=== PATIENT | female | born 1940 | race Caucasian/White ===

== ENCOUNTER → 2017-09-14 | Outpatient (CLI) | payer MEDICARE ==
[2017-09-14 08:02] LABS: Basophils % (A) 1 %; Eosinophils # (A) 0.2 k/uL (0-0.7); Eosinophils % (A) 4 %; HCT 45.6 % (34.0-46.0); HGB 14.5 gm/dL (11.4-16.0); Lymphocytes # (A) 3.4 k/uL (1.0-4.8); Lymphocytes % (A) 49 %; MCH 30.1 pg (25.0-35.0); MCHC 31.8 g/dL (31.0-37.0); MCV 94.7 fL (80.0-100.0); Mean Platelet Volume 7.8; Monocytes # (A) 0.3 k/uL (0-1.0); Monocytes % (A) 4 %; Neutrophils # (A) 2.8 k/uL (1.3-7.7); Neutrophils % (A) 41 %; Platelet Count 179 k/uL (150-450); RBC 4.82 m/uL (3.80-5.40); RDW 12.9 % (11.5-15.5); WBC 6.9 k/uL (3.8-10.6)
[2017-09-14 08:21] LABS: ALT 43 U/L (9-52); AST 42 U/L (14-36); Albumin 4.1 g/dL (3.5-5.0); Alkaline Phosphatase 70 U/L (38-126); Anion Gap 9 mmol/L; Blood Urea Nitrogen 20 mg/dL (7-17); Calcium 9.8 mg/dL (8.4-10.2); Carbon Dioxide 32 mmol/L (22-30); Chloride 103 mmol/L (98-107); Cholesterol 161 mg/dL (<200); Glucose 84 mg/dL (74-99); HDL Cholesterol 83 mg/dL (40-60); LDL Cholesterol,Calculated 65 mg/dL (0-99); Potassium 4.4 mmol/L (3.5-5.1); Sodium 144 mmol/L (137-145); Total Bilirubin 0.8 mg/dL (0.2-1.3); Total Protein 6.9 g/dL (6.3-8.2); Triglycerides 63 mg/dL (<150)
[2017-09-14 11:20] LABS: Erythrocyte Sedimentation Rate 3 mm/hr (0-20)
== END ==
LOC: LABWHC1 06:54
PROVIDERS: ATTEND Family Medicine
DX: E78.5 Hyperlipidemia, unspecified (principal); K21.9 Gastro-esophageal reflux disease without esophagitis; R05 Cough
CPT/HCPCS: 36415; 80053; 80061; 82607; 84443; 85025; 85652

== ENCOUNTER → 2018-08-18 | Outpatient (CLI) | payer MEDICARE ==
--- NOTE | 2018-08-18 12:29 | MR ---
EXAMINATION TYPE: MR shoulder LT wo con DATE OF EXAM: 08/18/2018 COMPARISON: Left HISTORY: Left shoulder instability and pain after fall TECHNIQUE: Multiplanar, multisequence imaging of the left shoulder is performed without contrast. FINDINGS: Rotator Cuff: There is an elongated articular surface tear of the myotendinous junction of the supraspinatus measur ing 1.2 x 1.3 cm at the undersurface of the supraspinatus fibers. There is additionally severe tendin opathy of the distal and insertional fibers and an 8 x 8 mm intrasubstance tear. There is also a 5 x 6 mm insertional fiber tear at the footplate. Fluid is seen at the undersurface of the infraspinatus elongated measuring approximately 1.5 cm. Ther e is an articular surface tear measuring 1.0 x 0.6 cm. Moderate infraspinatus tendinopathy is also se en. Teres minor is unremarkable in signal and muscle volume. There is an intrasubstance tear of the subscapularis measuring 7 mm superimposed upon moderate tendin opathy. Acromioclavicular Joint: Moderate acromioclavicular arthropathy is seen with small marginal osteophyt es, capsular hypertrophy and joint space narrowing. There is only minimal impression upon the suprasp inatus without alteration in intrinsic signal. No significant internal impingement. Glenohumeral Joint: Numerous osseous cysts are seen of the humeral head. There is heterogenous multif ocal cartilaginous degeneration of the glenohumeral joint. Very small anterior inferior humeral head osteophyte is seen. Labrum: There is a complex tear of the anterior superior labrum extending into the posterior superior labrum. Labral degeneration is seen inferior labrum. Perilabral fluid is seen of the anterior super ior labrum. Biceps Tendon: The long head of biceps is in normal location within bicipital groove. However there i s a split tear of the intra-articular portion of the biceps tendon. Bone marrow signal: No focal abnormal marrow signal is appreciated. Other: Small amount of fluid is seen within the subdeltoid/subacromial bursa and subcoracoid bursa th at may clinically correlate with bursitis. IMPRESSION: 1. Severe tendinopathy of the supraspinatus with 8 x 8 mm intrasubstance tear, suspected 1.2 x 1.3 cm articular surface tear, and 5 x 6 mm insertional fiber tear. 2. 1.0 x 0.6 cm articular surface tear of the infraspinatus. 3. Split tear of the intra-articular portion of the long head of the biceps tendon. 4. Complex tear of the anterior superior labrum extending into the posterior superior labrum with inf erior labral degeneration. 5. Small amount of fluid in the subdeltoid/subacromial bursa and subcoracoid bursa that may clinicall y correlate with bursitis. 6. Moderate acromioclavicular arthropathy and mild glenohumeral arthropathy with chondrosis. 7. Mild subscapularis tendinosis and 7 mm intrasubstance tear.
== END | disposition home or self-care (01) ==
LOC: RADMRIMAIN 07:39
PROVIDERS: ATTEND Family Medicine
DX: S46.112A Strain of muscle, fascia and tendon of long head of biceps, left arm, initial encounter (principal); S43.402A Unspecified sprain of left shoulder joint, initial encounter; M75.102 Unspecified rotator cuff tear or rupture of left shoulder, not specified as traumatic; M67.814 Other specified disorders of tendon, left shoulder; M19.012 Primary osteoarthritis, left shoulder; M77.8 Other enthesopathies, not elsewhere classified

== ENCOUNTER → 2020-11-21 | Outpatient (CLI) | payer MEDICARE ==
--- NOTE | 2020-11-22 05:00 | MR ---
EXAMINATION TYPE: MR brain wo/w con DATE OF EXAM: 11/21/2020 COMPARISON: None HISTORY: Double vision, hx macular degeneration. CONTRAST: Standard multiplanar, multisequence MRI departmental protocol utilizing 5 mL intravenous Gadavist david olinium contrast. There is cerebral cortical atrophy. There is no mass effect nor midline shift. There is no evidence o f intracranial hemorrhage. Diffusion images show no sign of an acute infarct. On the T2 and FLAIR agapito ges there are scattered small foci of increased signal at the holcomb-white matter junction of both cere bral hemispheres. These measure up to 5 mm and total number is approximately 10. The brainstem is int act. Corpus callosum is intact. Sella turcica appears normal. There is no evidence of orbital mass. O ptic chiasm appears normal. There is no evidence of a sellar mass. Pituitary stalk is in the midline. There is normal enhancement of the venous sinuses. IMPRESSION: Cerebral atrophy. Multiple small white matter high signal foci could relate to some mild microvascula r ischemia. No evidence of a cortical infarct.
== END | disposition home or self-care (01) ==
LOC: RADMRIMAIN 16:50
PROVIDERS: ATTEND Family Medicine
DX: G31.9 Degenerative disease of nervous system, unspecified (principal); R90.82 White matter disease, unspecified
CPT/HCPCS: 70553; A9585

== ENCOUNTER → 2020-12-14 | Outpatient (CLI) | payer MEDICARE | END | disposition home or self-care (01) | LOC: RADMRIMAIN 07:33 | PROVIDERS: ATTEND Family Medicine | DX: Z53.9 Procedure and treatment not carried out, unspecified reason (principal) ==